=== PATIENT | male | born 1995 | race Two or more races ===

== ENCOUNTER 2023-04-20 12:56 | Emergency (ER) | payer OTHER ==
[2023-04-20] MEDS: HYDROmorphone 2 MG/ML Syringe IVPUSH ONE (14:30)
[2023-04-20] MEDS: Lidocaine 1% 5 ML VIAL INJECT ONE (14:30)
[2023-04-20] MEDS: ceFAZolin 2 GM in Sodium Chloride 0.9% 50 ML IV ONE (14:40)
[2023-04-20] MEDS: HYDROmorphone 1 MG/ML Syringe IM ONE (15:04)
[2023-04-20] MEDS: HYDROmorphone 1 MG/ML Syringe IVPUSH ONE (16:07)
== END 2023-04-20 18:40 ==
LOC: MW.ED 12:56
DX: S62.630A Displaced fracture of distal phalanx of right index finger, initial encounter for closed fracture (principal); S62.636A Displaced fracture of distal phalanx of right little finger, initial encounter for closed fracture; S63.282A Dislocation of proximal interphalangeal joint of right middle finger, initial encounter; S63.284A Dislocation of proximal interphalangeal joint of right ring finger, initial encounter; W23.0XXA Caught, crushed, jammed, or pinched between moving objects, initial encounter
CPT/HCPCS: 12001; 26770; 64450; 73110; 73130; 96365; 96375; 96376; 99285; J0690; J1170; J3490